=== PATIENT | female | born 1965 | race Caucasian/White ===

== ENCOUNTER 2018-11-21 09:51 | Observation (INO) ==
[2018-11-21] MEDS ORDERED: Aspirin 325 MG TABLET PO ONE (10:25)
[2018-11-21 10:29] LABS: Basophils # 0.1 K/mcL (0.0-0.2); Basophils % 0.7 %; Eosinophils # 0.1 K/mcL (0.0-0.6); Eosinophils % 1.2 %; Hematocrit 41.5 % (35.3-44.9); Hemoglobin 13.4 g/dL (11.5-15.4); Immature Granulocytes % 0.8 % (0-4); Lymphocytes # 3.1 K/mcL (0.6-4.6); Lymphocytes % 31.7 %; Mean Corpuscular HGB Conc 32.3 g/dL (31.6-35.5); Mean Corpuscular Hemoglobin 29.9 pg (28.0-33.3); Mean Corpuscular Volume 92.6 fL (83.0-100.0); Mean Platelet Volume 9.9 fL (9.4-12.4); Monocytes # 0.8 K/mcL (0.0-1.3); Monocytes % 7.7 %; Neutrophils # 5.7 K/mcL (1.6-8.9); Platelet Count 253 K/mcL (140-400); Red Blood Count 4.48 M/mcL (3.82-4.97); Red Cell Distribution Width 12.6 % (11.5-14.5); Segmented Neutrophils % 57.9 %; White Blood Count 9.8 K/mcL (4.3-11.1)
[2018-11-21 10:40] LABS: INR 1.1
[2018-11-21 10:42] LABS: Activated Partial Thrombo Time 35.7 Seconds (26.0-36.0)
[2018-11-21 10:51] LABS: Alanine Aminotransferase 13 Units/L (7-52); Albumin 4.1 g/dL (3.5-5.7); Albumin/Globulin Ratio 1.3 (1.1-2.2); Alkaline Phosphatase 81 Units/L (34-104); Aspartate Amino Transferase 13 Units/L (13-39); BUN/Creatinine Ratio 14 (6-26); Bilirubin,Direct 0.2 mg/dL (0.0-0.2); Bilirubin,Indirect 0.4 mg/dL (0.0-1.2); Bilirubin,Total 0.6 mg/dL (0.3-1.0); Blood Urea Nitrogen 13 mg/dL (6-20); Calcium 9.8 mg/dL (8.6-10.3); Carbon Dioxide 27 mEq/L (23-29); Chloride 102 mEq/L (98-107); Globulin 3.2 g/dL (2.4-3.5); Glucose 238 mg/dL (70-105); Lipase 10 Units/L (11-82); Osmolality,Calculated 298 (280-300); Sodium 140 mEq/L (136-145); Total Protein 7.3 g/dL (6.4-8.9); Troponin I 0.06 ng/mL (< 0.04); eGFR For African Americans > 60 (> 60); eGFR For Non-African Americans > 60 (> 60)
[2018-11-21] MEDS ORDERED: *HR* Heparin 5,000 UNIT/ML VIAL IVP ONE (11:00)
[2018-11-21] MEDS ORDERED: *HR* Heparin 5,000 UNIT/ML VIAL IVP PRN ×2 (11:00)
[2018-11-21 11:27] LABS: Hematocrit 40.9 % (35.3-44.9); Hemoglobin 13.5 g/dL (11.5-15.4); Mean Corpuscular Hemoglobin 30.1 pg (28.0-33.3); Mean Corpuscular Volume 91.3 fL (83.0-100.0); Mean Platelet Volume 9.8 fL (9.4-12.4); Platelet Count 231 K/mcL (140-400); Red Blood Count 4.48 M/mcL (3.82-4.97); Red Cell Distribution Width 12.7 % (11.5-14.5); White Blood Count 8.6 K/mcL (4.3-11.1)
[2018-11-21] MEDS: Heparin 25,000 UNIT/250 ML D5W 25,000 UNIT/250 ML IV.SOLN IVC SCH (11:31)
[2018-11-21] MEDS: Nitroglycerin 0.4 MG TAB.SUBL SL SCH ×2 (11:34→13:01)
[2018-11-21 11:37] LABS: Heparin anti-factor XA UFH 0.02 IU/mL (0.30-0.70)
[2018-11-21 11:38] LABS: Prothrombin Time 11.7 Seconds (9.4-12.1)
[2018-11-21] MEDS ORDERED: MOM Conc 10 ML UD.LIQ PO PRN (12:06)
[2018-11-21] MEDS ORDERED: *HR* Promethazine 25 MG/ML VIAL IVP PRN (12:06)
[2018-11-21] MEDS ORDERED: Ondansetron 4 MG/2 ML VIAL IVP PRN (12:06)
[2018-11-21] MEDS ORDERED: Naloxone 0.4 MG/ML INJ IVP PRN (12:06)
[2018-11-21] MEDS ORDERED: Mag Hydrox/Al Hydrox/Simeth 30 ML UDC PO PRN (12:06)
[2018-11-21] MEDS ORDERED: Acetaminophen 325 MG TABLET PO PRN (12:06)
[2018-11-21] MEDS ORDERED: tiZANidine 4 MG TABLET PO PRN (12:09)
[2018-11-21] MEDS ORDERED: Loratadine 10 MG TABLET PO PRN (12:09)
[2018-11-21] MEDS ORDERED: D5% in Water 1,000 ML IVC PRN (13:12)
[2018-11-21] MEDS ORDERED: Dextrose Gel 15 GM/37.5 ML TUBE PO PRN ×2 (13:12)
[2018-11-21] MEDS ORDERED: *HR* Dextrose 50 % in Water (Syg) 50 ML SYRINGE IVP PRN (13:12)
[2018-11-21] MEDS: Insulin LISPRO 300 UNITS/3 ML VIAL SQ SCH ×2 (16:46→19:22)
[2018-11-21] MEDS: Lisinopril 20 MG TABLET PO SCH (19:21)
[2018-11-22 07:21] LABS: Basophils # 0.1 K/mcL (0.0-0.2); Basophils % 0.5 %; Eosinophils # 0.2 K/mcL (0.0-0.6); Eosinophils % 2.4 %; Hematocrit 41.6 % (35.3-44.9); Hemoglobin 13.7 g/dL (11.5-15.4); Immature Granulocytes % 1.1 % (0-4); Lymphocytes # 3.7 K/mcL (0.6-4.6); Lymphocytes % 40.4 %; Mean Corpuscular HGB Conc 32.9 g/dL (31.6-35.5); Mean Corpuscular Hemoglobin 30.5 pg (28.0-33.3); Mean Corpuscular Volume 92.7 fL (83.0-100.0); Mean Platelet Volume 9.8 fL (9.4-12.4); Monocytes # 0.7 K/mcL (0.0-1.3); Monocytes % 7.8 %; Neutrophils # 4.4 K/mcL (1.6-8.9); Platelet Count 240 K/mcL (140-400); Red Blood Count 4.49 M/mcL (3.82-4.97); Red Cell Distribution Width 12.7 % (11.5-14.5); Segmented Neutrophils % 47.8 %; White Blood Count 9.1 K/mcL (4.3-11.1)
[2018-11-22 07:26] LABS: Estimated Average Glucose 269 mg/dl
[2018-11-22] MEDS: Insulin LISPRO 300 UNITS/3 ML VIAL SQ SCH ×4 (07:41→19:11)
[2018-11-22 07:44] LABS: BUN/Creatinine Ratio 18 (6-26); Blood Urea Nitrogen 15 mg/dL (6-20); Calcium 9.6 mg/dL (8.6-10.3); Carbon Dioxide 25 mEq/L (23-29); Chloride 102 mEq/L (98-107); Chol/HDL Ratio 5.9 (0-4.9); Cholesterol 234 mg/dL (< 200); Glucose 208 mg/dL (70-105); HDL Cholesterol 40 mg/dL (40-59); LDL Cholesterol,Calculated 124 mg/dL (0-99); Osmolality,Calculated 295 (280-300); Phosphorous 3.3 mg/dL (2.7-4.5); Potassium 3.9 mEq/L (3.5-5.1); Sodium 139 mEq/L (136-145); Triglycerides 350 mg/dL (< 150); eGFR For African Americans > 60 (> 60); eGFR For Non-African Americans > 60 (> 60)
[2018-11-22 07:59] LABS: Thyroid Stimulating Hormone 0.965 mcIU/mL (0.340-5.600)
[2018-11-22] MEDS: Metoprolol XL (24 HR) Succ 50 MG TAB.ER.24H PO SCH (10:08)
[2018-11-22] MEDS: Lisinopril 20 MG TABLET PO SCH (10:08)
[2018-11-22] MEDS: Spironolactone 25 MG TABLET PO SCH (10:10)
[2018-11-22] MEDS: Heparin 25,000 UNIT/250 ML D5W 25,000 UNIT/250 ML IV.SOLN IVC SCH (11:02)
[2018-11-22] MEDS ORDERED: Regadenoson 0.4 MG/5 ML SYRINGE IVP ONE (12:43)
[2018-11-22] MEDS ORDERED: Gabapentin 300 MG CAPSULE PO PRN (14:02)
[2018-11-22] MEDS: Aspirin 81 MG TAB.CHEW PO SCH (16:16)
[2018-11-23] MEDS: Spironolactone 25 MG TABLET PO SCH (08:02)
[2018-11-23] MEDS: Aspirin 81 MG TAB.CHEW PO SCH (08:02)
[2018-11-23] MEDS: Metoprolol XL (24 HR) Succ 50 MG TAB.ER.24H PO SCH (08:03)
[2018-11-23] MEDS: Insulin LISPRO 300 UNITS/3 ML VIAL SQ SCH (08:03)
[2018-11-23] MEDS ORDERED: amLODIPine 5 MG TABLET PO SCH (09:00)
[2018-11-23 12:33] VITALS: BP 123/79
[2018-11-26 01:38] LABS: Metanephrine, Plasma 0.13 nmol/L (0.00-0.49)
== END 2018-11-23 13:15 | disposition home or self-care (01) ==
LOC: 3BNU 09:51 → EMEROOARM 09:51 → 3BNU 12:37
PROVIDERS: ADMIT Internal Medicine Nephrology; ATTEND Internal Medicine Nephrology